=== PATIENT | male | born 1945 | race Caucasian/White ===

== ENCOUNTER 2019-03-07 10:54 | Outpatient (CLI) | payer MEDICARE ==
--- NOTE | 2019-03-07 18:17 | ULT ---
LEFT LOWER EXTREMITY VENOUS ULTRASOUND 03/07/19 Color duplex Doppler ultrasonography of the deep veins was obtained. All deep veins were freely compr essible from groin to ankle. There was no echogenic clot seen and normal Doppler responses to augment ation maneuvers were present. Thus, there is no evidence of DVT. An area of palpable concern in the left calf was imaged and measured 4.3 x 0.7 x 2.5 cm. It is superf icial, being must beneath the skin surface and is somewhat more echogenic than adjacent muscle. It co uld be a hematoma. Its superficial nature suggests that the odds of it being highly significant are l ow. The history and time course, of course, would potentially modulate that conclusion. IMPRESSION: 1. No evidence of DVT. 2. Palpable area correlates with a solid density or mass in the superficial soft tissues that is slightly more echogenic than adjacent muscle. A hematoma might be a possibility. The history and alisa e course should dictate whether further concern is needed or not. POS: HOME
== END 2019-03-07 10:55 | disposition home or self-care (01) ==
LOC: BURULT 10:54
PROVIDERS: ATTEND Family Medicine
DX: M79.662 Pain in left lower leg (principal)

== ENCOUNTER 2019-10-17 21:47 | Emergency (ER) | payer MEDICARE ==
[~2019-10-17 21:47] MED LIST: Iopamidol 370 76% 100 ML VIAL ONE
[2019-10-17 22:13] LABS: #Basophils 0.1 thou/uL (0.0-0.2); #Eosinphils 0.2 thou/uL (0.0-0.7); #Lymphocytes 1.5 thou/uL (1.20-3.40); #Monocytes 0.5 thou/uL (0.11-0.59); #Neutrophils 2.9 thou/uL (1.40-6.50); %Basophils 1.6 % (0.0-1.0); %Eosinophils 4.7 % (0.0-10.0); %Lymphocytes 27.7 % (21.0-51.0); Hemoglobin 14.8 g/dL (14.0-18.0); Mean Corpuscular HGB CONC 34.3 g/dL (32.0-36.0); Mean Corpuscular Hemoglobin 29.9 pg (27.0-31.0); Mean Corpuscular Volume 87.2 fL (78.0-98.0); Mean Platelet Volume 7.5 fL (7.4-10.4); Platelet Count 219 thou/uL (130-400); RBC Distribution Width 12.4 % (11.5-14.5); Red Blood Cell (RBC) Count 4.96 mill/uL (4.70-6.10); White Blood Cell (WBC) Count 5.3 thou/uL (4.8-10.8)
[2019-10-17 22:15] LABS: PTT 28.5 SEC (22.9-36.1); Prothrombin Time 12.9 SEC (12.0-14.7)
[2019-10-17 22:26] LABS: ALT (SGPT) 13 U/L (8-55); AST (SGOT) 13 U/L (5-34); Albumin 4.2 g/dL (3.4-4.8); Alkaline Phosphatase 58 U/L (40-110); Anion Gap 13 mmol/L (10-20); BUN (Urea Nitrogen) 19 mg/dL (8.4-25.7); Bilirubin, Total 0.7 mg/dL (0.2-1.2); Calc. Creatinine Clearance 0 mL/min (70-130); Calcium 9.7 mg/dL (7.8-10.44); Carbon Dioxide 24 mmol/L (23-31); Chloride 109 mmol/L (98-107); Estimated GFR-MDRD 39; Globulin 2.9 g/dL (2.4-3.5); Glucose 240 mg/dL (83-110); Protein, Total 7.1 g/dL (5.8-8.1); Sodium 142 mmol/L (136-145)
--- NOTE | 2019-10-18 08:01 | CT ---
PRELIMINARY REPORT/[facility]/EMERGENCY AFTER HOURS PROCEDURE: This report was discussed with FLORINDA WHITE MD by Chantelle Bañuelos on Oct 17, 2019 22:58:00 SQL SERVER DEVELOPER. Addendum electronically signed by Chantelle Bañuelos on October 17, 2019 10:59:10 PM SQL SERVER DEVELOPER EXAMINATION CTA Head With Intravenous Contrast HISTORY RT SIDED HEAVYNESS, HYPERTENSION TECHNIQUE Axial CTA images of the head with intravenous contrast. MIP reconstructed images were created and rev iewed. CONTRAST With; ISOVUE [id number] MLS COMPARISON None provided. FINDINGS: INTERNAL CAROTID ARTERIES The intracranial ICAs are patent with no significant stenosis. No occlusion. No aneurysm. ANTERIOR CEREBRAL ARTERIES No significant stenosis. No occlusion. No aneurysm. MIDDLE CEREBRAL ARTERIES There is patchy, short-segment, incomplete occlusion of a few of the proximal left M2 segmental branc hes likely reflecting small thromboemboli. POSTERIOR CEREBRAL ARTERIES No significant stenosis. No occlusion. No aneurysm. BASILAR ARTERY No significant stenosis. No occlusion. No aneurysm. VERTEBRAL ARTERIES No significant stenosis. No occlusion. No aneurysm. SOFT TISSUES: No acute finding. BONES: No acute osseous abnormality. Spine degenerative changes resulting in varying degrees of neural foraminal stenosis in the cervical spine. MISCELLANEOUS The patient has undergone bilateral ocular lens replacement procedures. IMPRESSION: *1. There is patchy, short-segment, incomplete occlusion of a few of the proximal left M2 segmental b ranches likely reflecting small thromboemboli. 2. Spine degenerative changes resulting in varying degrees of neural foraminal stenosis in the cervic al spine. ELECTRONICALLY SIGNED BY: Rojelio Day MD Oct 17, 2019 10:55:57 PM SQL SERVER DEVELOPER This report is intended for review by the ordering physician only, in accordance of law. If you recei ve this report in error, please call [facility] at [phone]. FINAL REPORT CT ANGIO HEAD AND NECK WITH CONTRAST: Date: 10/17/[address] of the head and neck was performed with MIP reconstructions afterwards to evaluate the vasc ulature. No sign of obstruction or significant stenosis to either carotid arterial system or vertebral arterie s. The PICA on the right fills well. On the left, it may actually come off of the left vertebral fani ry. The posterior cerebral and superior cerebellar arteries fill. The basilar artery fills. Branches of the anterior cerebral were unremarkable. Some of the proximal branches of the left middle cerebral artery in the M2 segment have patchy amounts of contrast in them. There may be small thromb oemboli here. The left middle cerebral system was unremarkable. IMPRESSION: Patchy filling of some branches of proximal left M2 segment. The possibility of small thromboemboli h ere cannot be excluded. Correlate with clinical symptoms. Findings in agreement with preliminary reading by [facility]. POS: HOME
--- NOTE | 2019-10-18 08:08 | CT ---
PRELIMINARY REPORT/[facility]/EMERGENCY AFTER HOURS PROCEDURE: Receipt of this report by the clinical staff was confirmed with FLORINDA WHITE MD by Carmen Bell on D 2018 22:17:00 ASSOCIATE SOFTWARE DEVELOPER. Addendum electronically signed by Carmen Bell on October 17, 2019 10:17:42 PM ASSOCIATE SOFTWARE DEVELOPER EXAM: CT Head Without Intravenous Contrast. CLINICAL HISTORY: RT SIDED HEAVYNESS THAT STARTED THIS EVENING TECHNIQUE: Axial computed tomography images of the head/brain without intravenous contrast. COMPARISON: None provided. FINDINGS: BRAIN: No acute intraparenchymal hemorrhage. No mass lesion. No CT evidence for acute territorial inf arct. No midline shift or extra-axial collection. A few areas of hypodensity in the periventricular white matter likely related to chronic microvascular ischemic change. VENTRICLES: No hydrocephalus. ORBITS: The orbits are unremarkable. SINUSES AND MASTOIDS: The paranasal sinuses and mastoid air cells are clear. SOFT TISSUES: No significant facial or scalp soft tissue swelling evident. No radiopaque foreign body is seen. BONES: No acute skull fracture. IMPRESSION: No acute intracranial abnormality. ELECTRONICALLY SIGNED BY: Angeles Block D.O. Oct 17, 2019 10:14:49 PM ASSOCIATE SOFTWARE DEVELOPER This report is intended for review by the ordering physician only, in accordance of law. If you recei ve this report in error, please call [facility] at [phone]. FINAL REPORT CT OF THE BRAIN WITHOUT CONTRAST: Date: 10/17/19 The ventricles are normal in size for age and atrophy. There is no ventricular shift. No signs of acu te stroke. No loss of the insular ribbon on the left. One could argue some of the sulci are smaller i n the left sylvian fissure compared to the right, but the finding is marginal. Some minimal hypolucen cy in the deep white matter is typical of chronic microvascular ischemia. There is no intracranial he morrhage, mass, or gross edema. The skull appears intact. The visible paranasal sinuses are clear. IMPRESSION: No definite acute findings. See comments above. Report in agreement with preliminary reading by [facility]. POS: HOME
== END 2019-10-17 23:40 | disposition short-term general hospital (02) ==
LOC: BURERS 21:47
DX: I63.9 Cerebral infarction, unspecified (principal); R73.9 Hyperglycemia, unspecified; I10 Essential (primary) hypertension; Z79.899 Other long term (current) drug therapy; Z79.82 Long term (current) use of aspirin
CPT/HCPCS: 36416; 70450; 70496; 70498; 80053; 84484; 85025; 85610; 85730; 93005; 94760; Q9967

== ENCOUNTER 2019-12-25 07:37 | Emergency (ER) | payer MEDICARE ==
[2019-12-25 09:03] LABS: #Basophils 0.1 thou/uL (0.0-0.2); #Eosinphils 0.2 thou/uL (0.0-0.7); #Lymphocytes 0.8 thou/uL (1.20-3.40); #Monocytes 0.6 thou/uL (0.11-0.59); #Neutrophils 4.9 thou/uL (1.40-6.50); %Basophils 0.9 % (0.0-1.0); %Eosinophils 2.8 % (0.0-10.0); %Lymphocytes 11.9 % (21.0-51.0); %Monocytes 8.9 % (0.0-10.0); %Neutrophils 75.6 % (42.0-75.0); Hemoglobin 12.7 g/dL (14.0-18.0); Mean Corpuscular Hemoglobin 29.6 pg (27.0-31.0); Mean Corpuscular Volume 89.6 fL (78.0-98.0); Mean Platelet Volume 7.1 fL (7.4-10.4); Platelet Count 227 thou/uL (130-400); RBC Distribution Width 12.5 % (11.5-14.5); Red Blood Cell (RBC) Count 4.28 mill/uL (4.70-6.10); White Blood Cell (WBC) Count 6.5 thou/uL (4.8-10.8)
[2019-12-25 09:15] LABS: ALT (SGPT) 12 U/L (8-55); AST (SGOT) 16 U/L (5-34); Albumin 4.2 g/dL (3.4-4.8); Alkaline Phosphatase 67 U/L (40-110); Anion Gap 14 mmol/L (10-20); BUN (Urea Nitrogen) 18 mg/dL (8.4-25.7); Bilirubin, Total 1.2 mg/dL (0.2-1.2); Calc. Creatinine Clearance 0 mL/min (70-130); Calcium 9.5 mg/dL (7.8-10.44); Carbon Dioxide 23 mmol/L (23-31); Chloride 108 mmol/L (98-107); Estimated GFR-MDRD 64; Globulin 2.7 g/dL (2.4-3.5); Glucose 117 mg/dL (83-110); Potassium 4.2 mmol/L (3.5-5.1); Protein, Total 6.9 g/dL (5.8-8.1); Sodium 141 mmol/L (136-145)
== END 2019-12-25 09:19 | disposition short-term general hospital (02) ==
LOC: BURERS 07:37
DX: M79.89 Other specified soft tissue disorders (principal); R53.1 Weakness; I10 Essential (primary) hypertension; I47.1 Supraventricular tachycardia; R73.03 Prediabetes; Z86.73 Personal history of transient ischemic attack (TIA), and cerebral infarction without residual deficits; Z79.899 Other long term (current) drug therapy; Z79.82 Long term (current) use of aspirin
CPT/HCPCS: 36415; 80053; 83880; 85025; 99284

== ENCOUNTER 2020-07-10 13:26 | Outpatient (CLI) | payer MEDICARE ==
--- NOTE | 2020-07-10 14:34 | RAD ---
Right hip 2 views HISTORY: Right hip pain. FINDINGS: Mild joint space narrowing and subchondral sclerosis. Moderate osteophytosis. Mild subcortical cyst formation. Femoral head contour is maintained. Small fragmented osteophyte proj ects lateral to the acetabulum. No acute fracture, dislocation, or aggressive osseous erosions. Metallic clips overlie the scrotum. Degenerative changes of the sacroiliac joint also apparent. IMPRESSION : Moderate osteoarthritic changes right hip. No acute osseous abnormalities are demonstrated.
== END 2020-07-10 13:27 | disposition home or self-care (01) ==
LOC: BURRAD 13:26
PROVIDERS: ATTEND Family Medicine
DX: M25.551 Pain in right hip (principal); M16.11 Unilateral primary osteoarthritis, right hip

== ENCOUNTER 2021-03-31 12:10 | Outpatient (CLI) | payer MEDICARE | END 2021-03-31 12:11 | disposition home or self-care (01) | LOC: BURRAD 12:10 | PROVIDERS: ATTEND Family Medicine | DX: S20.211A Contusion of right front wall of thorax, initial encounter (principal) ==

== ENCOUNTER 2022-12-21 10:05 | Outpatient (CLI) | payer MEDICARE ==
[2022-12-21] MEDS ORDERED: Iopamidol 370 76% 100 ML VIAL ONE (10:16)
== END 2022-12-21 10:06 | disposition home or self-care (01) ==
LOC: BURCT 10:05
PROVIDERS: ATTEND Family Medicine
DX: Z01.818 Encounter for other preprocedural examination (principal); R10.9 Unspecified abdominal pain
CPT/HCPCS: 36415; 74177; 82565; Q9967

== ENCOUNTER 2024-03-15 11:10 | Outpatient (CLI) | payer MEDICARE | END 2024-03-15 11:11 | disposition home or self-care (01) | LOC: BURRAD 11:10 | PROVIDERS: ATTEND Family Medicine | DX: M53.3 Sacrococcygeal disorders, not elsewhere classified (principal); R39.9 Unspecified symptoms and signs involving the genitourinary system; M16.0 Bilateral primary osteoarthritis of hip; M51.37 Other intervertebral disc degeneration, lumbosacral region; M25.752 Osteophyte, left hip; M25.751 Osteophyte, right hip | CPT/HCPCS: 72220 ==